=== PATIENT | female | born 1985 | race Caucasian/White ===

== ENCOUNTER 2018-11-22 12:28 | Outpatient (REF) | payer MEDICAID, SELFPAY ==
[2018-11-22 13:40] LABS: HGB 14.1 g/dL (12.0-15.5); Mean Corp. HGB Concentration 34.4 g/dL (32.0-36.0); Mean Corpuscular Hemoglobin 28.3 pg (27.0-33.0); Mean Corpuscular Volume 82.2 fL (80-95); Mean Platelet Volume 11.5 fL (8.0-11.0); Platelet Count 277 x1000/uL (130-400); RBC 4.99 m/cumm (4.00-5.20); RBC Distribution Width 12.1 % (11.7-14.6); White Blood Cell Count 4.97 k/cumm (4.4-10.8)
[2018-11-22 14:01] LABS: ALT 14 U/L (14-59); AST 12 U/L (15-37); Albumin 4.1 g/dL (3.4-5.0); Alkaline Phosphatase 65 U/L (46-116); Anion Gap 11.8 mmol/L (3-11); BUN 8 mg/dL (7-18); Bilirubin, Total 0.7 mg/dL (0.2-1.0); CO2 26.2 mmol/L (21.0-32.0); CREATININE 0.84 mg/dL (0.55-1.02); Chloride 103 mmol/L (98-107); Glucose 91 mg/dL (70-100); Potassium 3.7 mmol/L (3.5-5.1); Sodium 141 mmol/L (136-145); TSH (W/Ref FT4) 0.82 uIU/mL (0.36-3.74); Total Protein 7.5 g/dL (6.4-8.2)
== END 2018-11-22 12:48 ==
LOC: NCHCN 12:28
PROVIDERS: PCP Family Medicine; Visit Provider Family Medicine
DX: F41.9 Anxiety disorder, unspecified (principal); F32.9 Major depressive disorder, single episode, unspecified
CPT/HCPCS: 80053; 82306; 85027; 84443

== ENCOUNTER 2019-03-26 13:28 | Outpatient (REF) | payer MEDICAID, SELFPAY ==
[2019-03-26 19:18] LABS: Bilirubin Negative (Negative); Blood Large (Negative); Clarity Cloudy (Clear); Glucose Negative (Negative); Ketones Negative (Negative); Leukocyte Esterase Moderate (Negative); Nitrite Negative (Negative); Specific Gravity >= 1.030 (1.005-1.025); Urobilinogen 0.2 EU/dL (Up TO 0.2)
[2019-03-26 19:27] LABS: Bacteria Moderate HPF (Negative); C & S Indicated? C&S Done As Ordered; Crystals Negative HPF (Negative); Epithelial Cells Many HPF (Negative); Mucus Negative (Negative); RBC >50 HPF (0-2); WBC >50 HPF (0-5)
[2019-03-28 10:39] LABS: Hepatitis B Surface Ag Negative (Negative); Hepatitis C Ab w Rflx HCV PCR Negative (Negative)
[2019-03-28 10:46] LABS: HIV-1/2 Ag & Ab Screen Negative (Negative)
[2019-03-28 13:09] LABS: Chlamydia Result Negative (Negative); GC Result Negative (Negative)
[2019-03-28 13:26] LABS: Syphilis Serology (RPR) Negative (Negative)
== END 2019-03-26 13:48 ==
LOC: NCHCN 13:28
PROVIDERS: PCP Family Medicine; Visit Provider Nurse Practitioner Family
DX: R39.89 Other symptoms and signs involving the genitourinary system (principal); Z11.3 Encounter for screening for infections with a predominantly sexual mode of transmission; Z11.4 Encounter for screening for human immunodeficiency virus [HIV]; Z11.59 Encounter for screening for other viral diseases
CPT/HCPCS: 86803; 87340; 87389; 87491; 87591; 81003; 81015; 86592; 87086; 87480; 87510; 87660

== ENCOUNTER 2020-02-24 21:24 | Outpatient (REF) | payer MEDICAID, SELFPAY ==
[2020-02-24 14:01] LABS: TSH (W/Ref FT4) 1.21 uIU/mL (0.36-3.74)
== END 2020-02-24 21:44 ==
LOC: NCHCN 21:24
PROVIDERS: PCP Family Medicine; Visit Provider Family Medicine
DX: R61 Generalized hyperhidrosis (principal)
CPT/HCPCS: 84443

== ENCOUNTER 2020-05-20 16:50 | Outpatient (REF) | payer MEDICAID, SELFPAY ==
[2020-05-20 19:47] LABS: HCT 40.9 % (36.0-46.0); HGB 13.7 g/dL (11.2-15.7); MCH 27.5 pg (27.0-33.0); MCHC 33.5 % (32.0-36.0); MPV 11.4 fL (8.0-11.0); Platelet Count 248 10^3/uL (130-400); RBC 4.99 10^6/uL (3.93-5.22); RDW 11.5 % (11.7-14.6); RDW-SD 34.3 fL; WBC 7.61 10^3/uL (4.4-10.8)
[2020-05-20 19:59] LABS: ALT 13 U/L (14-59); AST 7 U/L (15-37); Albumin 3.4 g/dL (3.4-5.0); Alkaline Phosphatase 78 U/L (46-116); Amylase 49 U/L (25-115); Anion Gap 7.1 mmol/L (3-11); BUN 10 mg/dL (7-18); Bilirubin, Total 0.3 mg/dL (0.2-1.0); CO2 26.9 mmol/L (21.0-32.0); CREATININE 0.8 mg/dL (0.55-1.02); Calcium 8.9 mg/dL (8.5-10.1); Chloride 103 mmol/L (98-107); Glucose 86 mg/dL (74-106); Lipase 84 U/L (73-393); Potassium 4.3 mmol/L (3.5-5.1); Sodium 137 mmol/L (136-145)
[2020-05-20 20:38] LABS: D-Dimer 244 ng/mlFEU (<500)
== END 2020-05-20 16:51 | disposition home or self-care (01) ==
LOC: NCHCN 16:50
PROVIDERS: PCP Family Medicine; Visit Provider Family Medicine
DX: R11.0 Nausea (principal); R10.11 Right upper quadrant pain
CPT/HCPCS: 80053; 83690; 85027; 82150; 85379

== ENCOUNTER 2020-05-28 01:34 | Outpatient (CLI) | payer MEDICAID, SELFPAY ==
--- NOTE | 2020-05-28 | DI.US_ITS ---
EXAM: US ABDOMEN CLINICAL HISTORY: RUQ ABD PAIN, R10.11 TECHNIQUE: Ultrasound of complete upper abdomen performed using standard protocol. COMPARISON: US OB US 1ST TRIMESTER TRANSABD*P from 12/07/2010 US PELVIS TRANSVAG from 10/13/2016 FINDINGS: There is no ascites evident. LIVER: There are no hepatic lesions evident nor obvious dilatation of intrahepatic ducts. GALLBLADDER/BILIARY: There are no gallstones. No gallbladder wall edema nor pericholecystic fluid. The common hepatic duct isnot dilated, measuring 3-4mm at the level of sergio hepatis. PANCREAS: There is no evidence of pancreatic mass nor dilatation of the pancreatic duct. SPLEEN: There is mild splenomegaly. Spleen measures 14 cm in length. There are no distinct intraspl enic lesions. No perisplenic fluid. KIDNEYS:Kidneys exhibit normal size with no evidence of solid mass, calculus, nor hydronephrosis. No cortical cysts evident. ABDOMINAL AORTA: There is no evidence of abdominal aortic aneurysm. IVC: Normal diameter where visualized. IMPRESSION: 1. No evidence of cholelithiasis nor dilatation of the biliary tree. 2. Mild splenomegaly. 3. There is no ascites. DATA REPOSITORY:
== END 2020-05-28 01:54 ==
PROVIDERS: PCP Family Medicine; Visit Provider Family Medicine
DX: R10.11 Right upper quadrant pain (principal); R16.1 Splenomegaly, not elsewhere classified
CPT/HCPCS: 76700

== ENCOUNTER 2020-06-18 03:14 | Outpatient (CLI) | payer MEDICAID, SELFPAY ==
[2020-06-18 11:04] LABS: Kit/Specimen SENT
[2020-06-18 11:16] LABS: Abs Immature Grans 0.02 10^3/uL (0.0-0.06); Absolute Basophil Count 0.02 10^3/uL (0.0-0.2); Absolute Eosinophil Count 0.06 10^3/uL (0.0-0.7); Absolute Lymphocyte Count 0.84 10^3/uL (1.2-3.4); Absolute Monocyte Count 0.35 10^3/uL (0.1-0.8); Absolute Neutrophil Count 4.85 10^3/uL (1.2-6.7); Basophils % 0.3; HCT 40.2 % (36.0-46.0); HGB 13.6 g/dL (11.2-15.7); Immature Grans % 0.3; Lymphocytes % 13.7; MCHC 33.8 % (32.0-36.0); MCV 82.9 fL (80-95); MPV 10.1 fL (8.0-11.0); Monocytes % 5.7; Nucleated RBC 0 %; Platelet Count 230 10^3/uL (130-400); RBC 4.85 10^6/uL (3.93-5.22); RDW 11.6 % (11.7-14.6); RDW-SD 34.6 fL; WBC 6.14 10^3/uL (4.4-10.8)
[2020-06-18 11:22] LABS: Glucose,1 Hr (Glucola) 91 mg/dL (80-140)
[2020-06-19 09:20] LABS: Hepatitis B Surface Ag Negative (Negative)
[2020-06-19 09:59] LABS: Hepatitis C Ab w Rflx HCV PCR Negative (Negative)
[2020-06-19 10:22] LABS: HIV-1/2 Ag & Ab Screen Negative (Negative)
[2020-06-19 10:33] LABS: Varicella IgG Antibody Positive (See Note)
[2020-06-19 10:37] LABS: Rubella IgG Ab (UVM) Positive (See Note)
[2020-06-20 10:09] LABS: Syphilis Total Ab w/Reflex Nonreactive (Nonreactive)
[2020-06-26 17:21] LABS: Result Summary NEGATIVE; Specimen WB Whole Blood
== END 2020-06-18 03:15 | disposition home or self-care (01) ==
LOC: LBO 03:14
PROVIDERS: PCP Family Medicine; Visit Provider Advanced Practice Midwife
DX: Z34.91 Encounter for supervision of normal pregnancy, unspecified, first trimester (principal); Z11.4 Encounter for screening for human immunodeficiency virus [HIV]; Z11.59 Encounter for screening for other viral diseases; Z01.84 Encounter for antibody response examination
CPT/HCPCS: 36415; 82950; 86787; 86803; 86850; 86900; 86901; 87340; 87389; 81220; 84443; 85025; 86762; 86780

== ENCOUNTER 2020-06-18 11:04 | Outpatient (REF) | payer MEDICAID, SELFPAY ==
--- NOTE | 2020-06-18 10:00 | PAPFT_PTH ---
PATIENT: Karina Aguilar LOC: [facility] U#:[id number] AGE/SX: 34/F ROOM: RE06/18/[address]: Ara Damon CNM : 1985 BED: DIS: 06/18/2020 SPEC #: [id number] RECD: 06/18/20 12:54 STATUS: DARVIN REQ #: [id number] JUVENTINO: 06/18/20 10:[address]: Ara Damon DEPT: [facility] Cytology RECD BY: Vangie Reaves ENTERED: 06/18/20 12:55 SP TYPE: PAPFT OTHR DR: Ale Bourgeois Tissues: 1 - CX/ENDOCX FOR PAP SMEARS Procedures: PAP THIN PREP/UVM Screening HPV DNA PROBE Comments: [id number]
[2020-06-18 11:59] LABS: *AMPHETAMINES SCREEN URINE Negative (Negative); *BARBITURATES SCREEN URINE Negative (Negative); *BENZODIAZEPINES SCREEN URINE Negative (Negative); Cannabinoids THC Positive (Negative); Cocaine Screen,Urine Negative (Negative); METHADONE URINE SCREEN Negative (Negative); OPIATES URINE SCREEN Negative (Negative)
[2020-06-18 12:00] LABS: Tricyclic Antidepressants Negative (Negative)
[2020-06-19 14:39] LABS: Chlamydia Result Negative (Negative); GC Result Negative (Negative)
[2020-06-24 11:25] LABS: Buprenorphine Negative ng/mL (Cutoff: 5.0); Norbuprenorphine Negative ng/mL (Cutoff: 2.5)
== END 2020-06-18 11:05 | disposition home or self-care (01) ==
LOC: LBN 11:04
PROVIDERS: PCP Family Medicine; Visit Provider Advanced Practice Midwife
DX: Z34.91 Encounter for supervision of normal pregnancy, unspecified, first trimester (principal); Z11.3 Encounter for screening for infections with a predominantly sexual mode of transmission; Z12.4 Encounter for screening for malignant neoplasm of cervix; Z11.51 Encounter for screening for human papillomavirus (HPV)
CPT/HCPCS: 80307; 87491; 87591; 88142; 87086; 87624

== ENCOUNTER 2020-08-11 02:25 | Outpatient (CLI) | payer MEDICAID, SELFPAY ==
--- NOTE | 2020-08-11 07:15 | DI.US_ITS ---
Exam(s) US OB 2-3 TRIMESTER EXAM: US OB 2-3 TRIMESTER CLINICAL HISTORY: anatomy SURVEY,ADVANCED MATERNAL AGE,o09.529,Z34.90. TECHNIQUE: Transabdominal obstetrical ultrasound performed. COMPARISON: No previous for comparison. FINDINGS: Transabdominal obstetrical ultrasound performed. FINDINGS: Number of fetuses: One. position: Varied throughout the examination. heart rate: 158 bpm. Placental location: Posterior. No evidence of previa. Amniotic fluid index: Amount of fluid is within normal limits. ANATOMICAL SURVEY: Within normal limits. BIOMETRIC DATA: BPD: 4.5cm consistent with 19 weeks 4 days. HC: 17.3cm consistent with 19 weeks 6 days. AC: 14.4cm consistent with 19 weeks 5 days. FL: 3.1cm consistent with 19 weeks 5 days. Cisterna Magna: 2.8 mm Cerebellum: 1.95 cm EFW: 308 grms 62% Composite Age: 19 weeks 5 days EDC by US: 12/31/2020 Heart Rate: 158BPM IMPRESSION: 1. Single live intrauterine gestation as above. 2. Normal anatomic survey. DATA REPOSITORY:
== END 2020-08-11 02:45 ==
PROVIDERS: PCP Family Medicine; Visit Provider Obstetrics & Gynecology
DX: O09.522 Supervision of elderly multigravida, second trimester (principal); Z3A.19 19 weeks gestation of pregnancy
CPT/HCPCS: 76805

== ENCOUNTER 2020-08-18 02:46 | Outpatient (CLI) | payer MEDICAID, SELFPAY ==
[2020-08-19 15:47] LABS: AFP 71.2 ng/mL; GA used in risk estimate Scan estimate; IVF Pregnancy No; Initial or repeat testing Initial testing; Insulin dependent diabetes No; Maternal Weight 219 lbs; Number of Fetuses 1; Physician Phone Number 802-748-7300; Prev Pregnancy w/NTD No; RECOMMENDED FOLLOW UP None.; Results Summary Normal risk
== END 2020-08-18 02:47 | disposition home or self-care (01) ==
LOC: LBO 02:46
PROVIDERS: PCP Family Medicine; Visit Provider Obstetrics & Gynecology Gynecology
DX: O09.522 Supervision of elderly multigravida, second trimester (principal); Z3A.20 20 weeks gestation of pregnancy
CPT/HCPCS: 82105

== ENCOUNTER 2020-10-12 03:39 | Outpatient (CLI) | payer MEDICAID, SELFPAY ==
[2020-10-12 09:49] LABS: HCT 33.5 % (36.0-46.0); HGB 11.1 g/dL (11.2-15.7); MCH 27.2 pg (27.0-33.0); MCHC 33.1 % (32.0-36.0); MCV 82.1 fL (80-95); MPV 10.1 fL (8.0-11.0); Platelet Count 244 10^3/uL (130-400); RBC 4.08 10^6/uL (3.93-5.22); RDW 12.1 % (11.7-14.6); RDW-SD 36.3 fL; WBC 7.75 10^3/uL (4.4-10.8)
[2020-10-12 09:57] LABS: Glucose,1 Hr (Glucola) 116 mg/dL (80-140)
== END 2020-10-12 03:40 | disposition home or self-care (01) ==
PROVIDERS: PCP Family Medicine; Visit Provider Obstetrics & Gynecology Gynecology
DX: O09.523 Supervision of elderly multigravida, third trimester (principal); O26.893 Other specified pregnancy related conditions, third trimester; Z67.91 Unspecified blood type, Rh negative; Z3A.28 28 weeks gestation of pregnancy
CPT/HCPCS: 36415; 82950; 85027; 86850; 90384

== ENCOUNTER 2020-10-15 02:27 | Inpatient (IN) | payer MEDICAID, SELFPAY ==
[2020-10-15] VITALS (8 sets, daily range): BP systolic 104–149; BP diastolic 64–88; PULSE 71–85; RESP 16–20; TEMP 36.5–36.8; O2SAT 98–100; BMI 33.6
--- NOTE | 2020-10-15 03:10 | W.PM.OBHPL1 ---
Date of service: 10/15/20 Time of Service: 03:10 Assessment and Plan Assessment and plan (1) Premature rupture of membranes: Status: Acute Assessment and plan: Patient arrived on the percent to completely dilated. She is not subjectively experiencing contractions. Eliseo breech on presentation. I advised the patient that a delivery is best plan of care because of the 's premature status. Informed consent was obtained I explained the risks of delivery of premature infant. The OR team has been called we will proceed to the OR. Ancef 2 g of been given IV. GBS obtained currently pending. Qualifiers: PROM onset of labor timing: onset of labor within 24 hours of rupture PROM gestational age: -second trimester Qualified Code(s): O42.012 - premature rupture of membranes, onset of labor within 24 hours of rupture, second trimester (2) Breech presentation: Status: Acute Qualifiers: Fetus number: single or unspecified fetus Qualified Code(s): O32.1XX0 - Maternal care for breech presentation, not applicable or unspecified OB-HPI Labor/Delivery History of Present Illness Reason for Visit: R/O PPROM Chief Complaint: Suspected Rupture of Membranes , Associated Signs and Symptoms of Suspected ROM: Confirmed by digital exam nitrazine test. LADAN Calculator Estimated Delivery Date Method Current WG Current Estimate 01/02/21 LMP (Certain) 28w 5d Other Estimates 01/01/21 Ultrasound #1 28w 6d History of Present Expected Delivery Route/Plan - elects FOB/boyfriend - Alexander Walker (their first child together, he has 2 sons) Would like regional anesthesia for labor/ BG Specific Issues/Plan 1. Hx depression/anxiety, was on Prozac, stopped once became , PHQ9 score=4 2. FOB's sons have lead poisoning/autism and are special needs (teenagers) 3. AMA, declines [facility] referral but desires [place] and CF screening. CF neg,[place]=low prob x3, female 4. BMI 30.1 at initial OB, early glucola 91. 8. Repeat Glucola 5.7. discussed vasectomy. Partner agrees to vasectomy. Dr. Jerry's info given 6. Increased risk for gest HTN/pre-e d/t AMA & BMI, low dose ASA starting @ 12 wks 08/17/20. Stopped ASA. GI upset. 09/14/20. Pepsid liquid 20mg BID not effective. 10/12/20 Nexium granules Rx to pt. 7. Smoker, advised to continue to decrease use, declines cessation assistance 8. +THC on UDS, discuss with Karina 9. Rh neg, 28 wk RhoGam ____ Review of Systems All systems reviewed & are unremarkable except as noted in HPI and below Genitourinary Comments: Rupture of amniotic sac with clear fluid approximately 1:00 this morning. Patient denies any regular contractions she reports feeling cramping [facility] Medical History (Updated 10/15/20 @ 03:16 by Lacy Crooks MD) Acquired skin tag AMA (advanced maternal age) multigravida 35+ Anxiety BMI 30.0-30.9,adult Chronic low back pain Depression Difficulty swallowing pills Hip pain Poor dentition Preventative health care Rh negative state in antepartum period Tobacco abuse Social History (Updated 03/20/19 @ 13:41 by Denise De La Garza RN) Smoking/Tobacco Use Status: Former Tobacco Use Quit Date: 03/05/19 Pack-years: 15 Smoking risk assessment performed?: Yes Drug use: Occasionally Do you feel safe in your relationship?: Yes History History 4 Para 2 Hx # Term Pregnancies 2 Multiple births 0 Hx # Pregnancies 0 Ectopic pregnancies 0 AB induced 0 Hx Number of Living Children 2 AB spontaneous 1 Past Pregnancies Del. Date GA/Weeks # Outcome Route Wgt Sex Labor Lgth Anesthesia Location Prov Complic 07/27/04 41 No Successful vaginal 7 lb 3 oz Male long [facility] - Dr. Suggs 08/04/11 41 No Successful vaginal 8 lb 6 oz Male 7 hrs regional [facility] - Dr. Goss Delivery Date: 07/27/04 IOL for postdates, vaginal miso x1, nml Yaneth Gerardo Delivery Date: 08/04/11 swept membranes, labor started 2 days later, nml Yaneth Cortés Meds Allergies and Home Medications Allergies Allergy/AdvReac Type Severity Reaction Status Date / Time codeine AdvReac Mild Hyper Unverified 10/12/20 08:42 hydrocodone bitartrate AdvReac Mild HYPER Unverified 10/12/20 08:42 [From Vicodin] Home Medications Medication Instructions Recorded Confirmed Type albuterol sulfate [Proair Hfa] 8.5 g INHALATION PRN PRN 09/01/16 10/15/20 History XQU21-LU 400 mcg-om3 35 mg-dha 25 4 tab PO DAILY AM #90 tab 06/18/20 10/15/20 Rx mg-epa 5 mg-fish oil chewable tablet aspirin 81 mg tablet,delayed 81 mg PO DAILY #90 tab 06/18/20 10/15/20 Rx release esomeprazole magnesium 40 mg 40 mg PO DAILY #30 ea 10/12/20 10/15/20 Rx granules delayed release for susp Exam Physical Exam Vital signs: Pulse BP 81 124/65 10/15/20 02:41 10/15/20 02:41 Constitutional Constitutional: no acute distress Detailed Labor and Delivery Exam Allen Score: Cervical Points Exam 0 1 2 3 Dilation Closed 1-2cm 3-4 cm 5-6cm Effacement 0-30% 40-50% 60-70% 80% Consistency Firm Medium Soft Station -3 -2 -1,0 +1,+2 Position Posterior Mid Anterior Amniotic Membrane Status: Ruptured Rupture Method: Spontaneous Amniotic Fluid: Clear Pooling: Positive Nitrazine: Positive Monitor Mode: External Contraction Intensity: Mild Comments: No contractions evident on external tocometer Fetus A Monitor Accelerations: 10 X 10 Monitor Decelerations: None Variability: Moderate (6-25 BPM) Presentation: Breech Categories: Category I Neck Exam Neck Exam: Normal Respiratory Exam Respiratory Exam: Normal Cardiovascular Exam Cardiovascular Exam: Normal (Heart regular rate and rhythm) Abdominal Exam Abdominal Exam: Normal (Gravid nontender) Results Results Group Beta Strep: Done-Result Unknown Blood Type: O- Rubella Status: Immune Varicella Immunity: Immune Risk Assessment Risk for Shoulder Dystocia Historical/Initial OB: NEGATIVE FOR: Pelvic Abnormality, Pre- BMI>30, Previous Shoulder Dystocia or Previous Macrosomia Risk for Pre-Eclampsia Date Initiated/Initials: to start @ 12 wks. JK Yes, if one or more: NEGATIVE FOR: Hx Pre-E/Gest HTN, Chronic HTN, Multiple Gestation, Pre-gestational DM, Renal Disease, Systemic Lupus or APA Syndrome Yes, if 2 or more: POSITIVE FOR: Age>= 35 yrs and BMI>30; NEGATIVE FOR: Nulliparity, >10yr btwn pregnancies, ethinicty, Mother/Sister w/ Pre-E or Previous IUGR Risk for Post- Hemorrhage Initial: NEGATIVE FOR: Multiple Gestation, Previous PPH, Known Clotting Deficiency, Grand Multiparity or Anticoagulation Risks Reviewed Risks Reviewed Upon Admission: Yes (Bedside ultrasound confirmed breech presentation and decreased TATA)
[2020-10-15] MEDS: Lactated Ringers 1,000 ML 200 ML IV (03:21)
[2020-10-15] MEDS: ceFAZolin 2 GM/50 ML BAG IVPB (03:21)
[2020-10-15 03:33] LABS: HCT 35.3 % (36.0-46.0); HGB 11.6 g/dL (11.2-15.7); MCH 27.8 pg (27.0-33.0); MCHC 32.9 % (32.0-36.0); MCV 84.7 fL (80-95); MPV 10.4 fL (8.0-11.0); Platelet Count 238 10^3/uL (130-400); RBC 4.17 10^6/uL (3.93-5.22); RDW 12.2 % (11.7-14.6); RDW-SD 36.9 fL; WBC 8.06 10^3/uL (4.4-10.8)
--- NOTE | 2020-10-15 03:58 | PLAC_PTH ---
PATIENT: Karina Aguilar LOC: [facility] U#:[id number] AGE/SX: 34/F ROOM: OBS.302 RE10/15/[address]: Lacy Crooks : 1985 BED: A DIS: 10/15/2020 SPEC #: [id number] RECD: 10/15/20 12:58 STATUS: DARVIN REQ #: [id number] JUVENTINO: 10/15/20 03:[address]: Lacy Crooks DEPT: Surgical Specimen RECD BY: Vangie Reaves ENTERED: 10/15/20 13:00 SP TYPE: PLAC OTHR DR: Ale Bourgeois Tissues: 1 - PLACENTA (3RD TRIMESTER) Procedures: GROSS AND MICRO LEVEL 5 Comments: [id number]
[2020-10-15] MEDS: Bupivacaine 0.25% Pres-Free 30 ML VIAL (04:20)
--- NOTE | 2020-10-15 04:20 | ANES.PREOP_ITS ---
General Info Date of Service Date Performed: 10/15/20 Height: 5 ft 8.9 in Weight: 102.965 kg Body Mass Index (BMI): 33.6 Surgical Procedure: Operation Date: 10/15/20 03:50 Proposed Procedures Side Surgeon p Section Lacy Crooks MD Actual Procedures Side Surgeon p Section Not Applicable Lacy Crooks MD Meds Allergies and Home Medications Allergies Allergy/AdvReac Type Severity Reaction Status Date / Time codeine AdvReac Mild Hyper Unverified 10/12/20 08:42 hydrocodone bitartrate AdvReac Mild HYPER Unverified 10/12/20 08:42 [From Vicodin] Home Medication Medication Instructions Recorded albuterol sulfate [Proair Hfa] 8.5 g INHALATION PRN PRN 09/01/16 [id number] 400 mcg-om3 35 mg-dha 25 4 tab PO DAILY AM #90 tab 06/18/20 mg-epa 5 mg-fish oil chewable tablet aspirin 81 mg tablet,delayed 81 mg PO DAILY #90 tab 06/18/20 release esomeprazole magnesium 40 mg 40 mg PO DAILY #30 ea 10/12/20 granules delayed release for susp Current Visit Medications: Current Medications Generic Name Dose Route Start Last Admin Trade Name Freq PRN Reason Stop Dose Admin Citric Acid/Sodium Citrate 30 ml 10/15/20 03:00 Sodium Citrate 30 Ml Cup PO PREOP HARSHAL Sodium Chloride 500 mls @ 0 mls/hr 10/15/20 02:27 Saline 500ml Bag IV PRN PRN As Directed Ringer's Solution 1,000 mls @ 200 mls/hr 10/15/20 03:00 IV INFUSION HARSHAL Cefazolin Sodium/Dextrose 2 gm in 50 mls @ 100 mls/hr 10/15/20 03:00 10/15/20 03:41 Ancef Duplex IVPB Infused PREOP HARSHAL Infusion Azithromycin 500 mg/ Sodium 250 mls @ 250 mls/hr 10/15/20 03:00 Chloride IVPB PREOP HARSHAL Sodium Chloride 500 mls @ 0 mls/hr 10/15/20 02:57 Saline 500ml Bag IV PRN PRN As Directed IV Miscellaneous Supplies 1 each 10/15/20 02:30 Iv Access IV DIRECTED HARSHAL IV Miscellaneous Supplies 1 each 10/15/20 03:00 Iv Access IV DIRECTED HARSHAL Sodium Chloride 0 ml 10/15/20 02:27 Normal Saline Flush 10 Ml Syr IVP PRN PRN Sodium Chloride 0 ml 10/15/20 02:57 Normal Saline Flush 10 Ml Syr IVP PRN PRN PFSH Active Problems Active Problems: Problem Status Onset Code Breech presentation O32.1XX0 Premature rupture of membranes O42.90 Rh negative state in antepartum period O26.899, Z67.91 Difficulty swallowing pills R19.8 GERD (gastroesophageal reflux disease) K21.9 AMA (advanced maternal age) multigravida 35+ O09.529 BMI 30.0-30.9,adult Z68.30 Marijuana use F12.90 Z34.90 Tobacco abuse Z72.0 Poor dentition K08.9 Anxiety F41.9 Depression F32.9 Acquired skin tag L91.8 Medical History Medical History (Updated 10/15/20 @ 03:16 by Lacy Crooks MD) Acquired skin tag AMA (advanced maternal age) multigravida 35+ Anxiety BMI 30.0-30.9,adult Chronic low back pain Depression Difficulty swallowing pills Hip pain Poor dentition Preventative health care Rh negative state in antepartum period Tobacco abuse Tobacco Smoking/Tobacco Use Status: Former Tobacco Use Substance Use Substance use: Occasionally Prental History History 4 Para 2 Hx # Term Pregnancies 2 Multiple births 0 Hx # Pregnancies 0 Ectopic pregnancies 0 AB induced 0 Hx Number of Living Children 2 AB spontaneous 1 Past Pregnancies Del. Date GA/Weeks # Outcome Route Wgt Sex Labor Lgth Anesthes ia Location [facility] 07/27/04 41 No Successful vaginal 3260.195 g Male long [facility] Suggs 08/04/11 41 No Successful vaginal 3798.836 g Male 7 hrs regional [facility] Angie Goss Delivery Date: 07/27/04 IOL for postdates, vaginal miso x1, nml Yaneth Gerardo Delivery Date: 08/04/11 swept membranes, labor started 2 days later, nml Yaneth Cortés Vital Signs and Lab Results Vital Signs Most Recent Vital Signs in EMR: Most Recent Vital Signs Temp Pulse Resp BP 36.8 C 81 20 124/65 10/15/20 02:44 10/15/20 02:41 10/15/20 02:44 10/15/20 02:41 Lab Results Result Diagrams: 10/15/20 03:05 Blood Type / Crossmatch: Patient ABO/Rh O Negative 10/15/20 03:05 10/15/20 Antibody Screen POSITIVE 10/15/20 03:05 10/15/20 Crossmatch See Detail 10/15/20 03:05 10/15/20 Complete Blood Count: White Blood Count 8.06 10^3/uL (4.4-10.8) 10/15/20 03:05 10/15/20 Red Blood Count 4.17 10^6/uL (3.93-5.22) 10/15/20 03:05 10/15/20 Hemoglobin 11.6 g/dL (11.2-15.7) 10/15/20 03:05 10/15/20 Hematocrit 35.3 % (36.0-46.0) L 10/15/20 03:05 10/15/20 Platelet Count 238 10^3/uL (130-400) 10/15/20 03:05 10/15/20 Complete Metabolic Panel: No Data to Display Liver Function Panel: No Data to Display Coagulation Panel: No Data to Display Cardiac Panel: No Data to Display Arterial Blood Gas: No Data to Display Venous Blood Gas: No Data to Display Pancreas Panel: No Data to Display Thyroid Panel: No Data to Display Infectious Disease: No Data to Display Blood Cultures: No Data to Display Toxicology Panel: No Data to Display Panel: No Data to Display Anesthesia Assessment and Plan Anesthesia History Personal History: No History of Anesthesia Complications Family History: No Family History of Anesthesia Complications Exercise Tolerance Exercise Tolerance: Metabolic Equivalents>4 Pertinent Negatives Pertinent Negatives: No Major Cardiovascular Symptoms or Complaints and No Major Pulmonary Symptoms or Complaints Cardiac & Pulmonary Exam Cardiac Exam: Normal S1/S2 Heart Sounds Pulmonary Exam: Clear Bilateral Breath Sounds Airway Exam Known Difficult Airway: No Mallampati Class: 2 Mouth Opening: Normal (> 3cm) Thyromental Distance: Greater than 3 cm Neck Range of Motion: Full ROM Neck Circumference: Normal Teeth Condition: Normal Dentition and Other (Missing upper center teeth) ASA Classification ASA Score: ASA 2 Emergency Case?: Yes NPO Status NPO Status: Full Stomach Status Status: Confirmed Anesthesia Plan Resuscitation Status: Full Code Anesthesia Technique: Spinal Anesthesia Airway Planned: Natural Airway Monitors Used: Standard Monitors Preoperative Comments:: Quick preop completed before procedure start. Formalized now.
--- NOTE | 2020-10-15 05:07 | PDOC.OPNB_ITS ---
Date of service: 10/15/20 Time of Service: 05:07 Operative Note Operative Note Delivery Method: Unscheduled Category: STAT and Primary DATE OF PROCEDURE: 10/15/20 PRE-OP DIAGNOSES: rupture of membranes at 28w5d EGA. Breech presentation POST-OP DIAGNOSES: same PROCEDURE: Upper uterine segment transverse delivery SURGEON: Lacy Crooks Assisting Surgeon: Andree Jara Anesthesia: spinal Estimated blood loss (mL): 700 Pathology: other (placenta to pathology. ) Complications: None Patient was transported to: floor Patient's condition: stable Indications: 34yo female with LADAN 01/02/21 by LMP confirmed by 1st trimester u/s reported gush of clear fluid ~ 0100 10/15/20. SVE on presentation to Center gross rupture of membranes confirmed along with ancelmo breech presentation confirmed on bedside u/s. Category 1 FHR tracing. Pt counseled and accepted need to perform primary Findings: Viable female infant in breech presentation, sacrum anterior and head to maternal R. Nl appearing placenta, 3 vessel cord. Arterial umbilical cord gas pH 7.29, CO2 57, BE 0. Nl appearing uterus and adnexa. Procedure Description: Patient was taken to the operating room she is placed in the sitting position and spinal anesthesia was administered without difficulty. She was then placed in the dorsal supine position with a leftward tilt. SCDs and a Pérez catheter to gravity drainage were in place. A vaginal prep was deferred and the patient's abdomen was prepped and draped in the usual sterile fashion. After a adequate level of anesthesia was achieved a Pfannenstiel skin incision was made approximately 2 cm superior to the pubic symphysis using a scalpel and the underlying subcutaneous tissue dissected using Bovie electrocautery to the level of the rectus fascia. The rectus fascia was then nicked in the midline and the fascial incision extended laterally using curved Cortes scissors. 2 Janelle clamps were applied to the inferior rectus fascia and the rectus fascia was dissected off of the underlying rectus muscles using Bovie electrocautery and blunt technique. A similar technique was carried out on the superior rectus fascia. Rectus muscles were then in the midline and the peritoneum entered bluntly. The peritoneal incision was extended laterally using blunt technique. A bladder blade was then placed in the incision and the bladder retracted away from the operative field. The vesicle-uterine peritoneum over lower uterine segment was incised with curved Cortes scissors and the bladder flap created bluntly. Scalpel was used to incise what appeared to be the lower uterine segment in a transverse fashion. Upon entry into the uterus the uterine incision was extended bluntly and the amniotic sac was ruptured. A single sterile gloved hand was used to sweep the head in a counter clockwise fashion allowing the buttocks to be lifted out of the lower uterine segment and then grasped. With bilateral traction of the illiac crests the trunk was delivered followed by the head. The cord was doubly clamped and cut and the handed off to the waiting pediatric team. A segment of umbilical cord was cut and saved for umbilical cord gases and cord blood was collected. The placenta was extracted with a combination of fundal massage and gentle cord traction and sent to pathology. The uterus was exteriorized and cleared of all clots and debris. Inspection of the transverse uterine incision revealed it to be higher than the lower uterine segment. The location of the transverse incision was 1/[address] up the length of the uterus. The uterine incision was closed in layers. The initial closure was with a running lock suture of 0 Vicryl followed by a second imbricating suture of 0 Vicryl. This was then followed by a 3rd layer of closure with 0-Vicryl. Two sites along the incision required figure of eight closure with 2-0 Vicryl to achieve hemostasis. The uterus was returned to the abdomen, the incision inspected and noted to be hemostatic. Both adnexa were normal in appearance. The abdominal peritoneum was reapproximated with a running suture of 2-0 Vicryl. The rectus fascia was then reapproximated with a closure of 0 Vicryl extending from the lateral margins and overlapping in the midline. Subcutaneous tissue was irrigated with normal saline and reapproximated with interrupted sutures of 2-0 Vicryl. Skin was closed with a subcuticular closure of 4-0 Vicryl. The skin was then sealed with skin glue. Uterus was massaged for any remaining clots and debris's and the patient transf erred bed and transported to Center in stable condition. All sponge lap needle counts were correct x2
[2020-10-15 06:44] LABS: Source Nasal/Nares
[2020-10-15 07:34] LABS: COVID-19 PCR Negative (Negative)
--- NOTE | 2020-10-15 07:36 | W.PM.OBDISCH ---
DS: Diagnosis Discharge Diagnosis (1) Premature rupture of membranes: Status: Acute (2) Breech presentation: Status: Acute Discharge Plan Disposition Patient Disposition: [facility] Condition: Fair Discharge Details Reason For Visit: R/O PPROM Admit Date/Time: 10/15/20 02:27 Admit Provider: Lacy Crooks Attending Provider: Lacy Crooks Primary Care Provider: Ale Bourgeois [facility] Hospital Course: Patient was admitted early in the morning on 10/15/2020 with report of SROM at 0100 hours. The PROM with ancelmo breech presentation was confirmed on admission. She underwent a urgent delivery and delivered a viable female weighing 1265 g Apgars 6/7/7. The was stabilized and transferred to [facility] NICU. The placenta was sent for pathology analysis. The infant will be named Roxie. She requested transfer to [facility] to be in closer proximity to her . Transfer was accepted by Dr. Prabha Clark. She be discharged via ambulance with an IV and Pérez catheter in place. Home Meds and New Rx's Prescriptions: No Action aspirin [Aspirin Low Dose] 81 mg tablet,delayed release (DR/EC) 81 mg PO DAILY Qty: 90 RF: 0 Gummy 400 mcg-35 mg -25 mg-5 mg tablet,chewable 4 tab PO DAILY AM Qty: 90 RF: 6 esomeprazole magnesium [Nexium Packet] [address] for susp in packet 40 mg PO DAILY Qty: 30 RF: 5 albuterol sulfate [ProAir HFA] 200 PUFF HFA aerosol inhaler 8.5 g Inhalation PRN PRNRF: 0 Discharge Instructions Activity:: Activity as Tolerated Equipment/Supplies:: No Equipment Needed Diet:: As Tolerated Discharge Orders Discharge Orders: Discharge Order (Routine); Ordered 10/15/20 Ordered By: Lacy Crooks OB:DS Summary Summary Laceration Extension: N/A Contraception Discussed Contraception Discussed: No, Infant Gender-Baby A: Female weight: 2 lb 12.622 oz Status at Discharge Functional status at discharge: bed bound Overall status at discharge: patient is progressing back to baseline Mental Status: mental status grossly normal Speech and Movement: speech and movement normal Mood: congruent mood Affect: normal affect Exam Physical Exam Vital signs: Temp Pulse Resp BP Pulse Ox 98.1 F 73 18 104/64 100 10/15/20 05:15 10/15/20 06:35 10/15/20 06:35 10/15/20 06:35 10/15/20 06:35 Vital Signs Reviewed: Yes Constitutional Constitutional: no acute distress HEENT Exam HEENT Exam: Not Done Neck Exam Neck Exam: Normal Respiratory Exam Respiratory Exam: Normal Cardiovascular Exam Cardiovascular Exam: Normal Abdominal Exam Abdomen: Other (Nontender Pfannenstiel skin incision clean dry and intact skin glue in place) Fundal Exam Fundus: Below Umbilicus and Firm Rectal Exam Rectal Exam: Not Done Extremities Exam Extremity Exam: Normal Back/Spine/Pelvis Exam Back Exam: Normal (spinal site dry without bruising) Skin Exam Skin Exam: Normal Neurological Exam Neurological Exam: Normal Psychiatric Exam Psychiatric Exam: Normal [facility] Medical History (Updated 10/15/20 @ 07:37 by Lacy Crooks MD) Acquired skin tag AMA (advanced maternal age) multigravida 35+ Anxiety BMI 30.0-30.9,adult Chronic low back pain Depression Difficulty swallowing pills Hip pain Poor dentition Preventative health care Rh negative state in antepartum period Tobacco abuse Social History (Updated 03/20/19 @ 13:41 by Denise De La Garza RN) Smoking/Tobacco Use Status: Former Tobacco Use Quit Date: 03/05/19 Pack-years: 15 Smoking risk assessment performed?: Yes Alcohol Intake: never Drug use: Occasionally Substance use type: marijuana Do you feel safe in your relationship?: Yes History History 4 Para 2 Hx # Term Pregnancies 2 Multiple births 0 Hx # Pregnancies 0 Ectopic pregnancies 0 AB induced 0 Hx Number of Living Children 2 AB spontaneous 1 Past Pregnancies Del. Date GA/Weeks # Outcome Route Wgt Sex Labor Lgth Anesthesia Location Prov Complic 07/27/04 41 No Successful vaginal 7 lb 3 oz Male long [facility] - Dr. Suggs 08/04/11 41 No Successful vaginal 8 lb 6 oz Male 7 hrs regional [facility] - Dr. Goss Delivery Date: 07/27/04 IOL for postdates, vaginal miso x1, nml Yaneth Gerardo Delivery Date: 08/04/11 swept membranes, labor started 2 days later, nml Yaneth Cortés DS: Data Vitals/I&O Vitals and I&O: Vital Signs Temperature 98.1 F 10/15/20 05:15 Temperature Source Tympanic 10/15/20 05:15 Pulse 73 10/15/20 06:35 Pulse Rhythm Regular 10/15/20 02:44 Respiratory Rate 18 10/15/20 06:35 Blood Pressure 104/64 10/15/20 06:35 Pulse Oximetry 100 10/15/20 06:35 Oxygen Delivery Method Room Air 10/15/20 06:35 Oxygen Flow Rate 0 10/15/20 06:35 Pain Level 1 10/15/20 06:35 Intake & Output 10/14/20 10/14/20 10/15/20 11:59 23:59 11:59 Intake Total 1030 / 1030 Output Total 1100 / 1100 Balance -70 / -70 Weight 227 lb Intake: IV 750 / 750 Oral 280 / 280 Output: Urine 400 / 400 Estimated Blood Loss 700 / 700 Other: Urine Color Yellow Urine Appearance Clear Data Completed and Pending Labs on day of discharge: Labs from last 24 hours 10/15/20 10/15/20 10/15/20 03:05 03:05 03:05 WBC 8.06 RBC 4.17 Hgb 11.6 Hct 35.3 L MCV 84.7 MCH 27.8 MCHC 32.9 RDW 12.2 Plt Count 238 MPV 10.4 COVID-19 Source Nasal/Nares SARS-CoV-2 (PCR) Pending Patient ABO/Rh O Negative Antibody Screen POSITIVE Antibody Identification Anti-D Crossmatch See Detail 10/15/20 03:05 Vaginal/Rectal Group B Streptococcus Culture - Pending Preliminary micro results at discharge 10/15/20 03:05 Group B Streptococcus Culture - Pending Vaginal/Rectal
--- NOTE | 2020-10-15 14:34 | W.ANESPOSTOP ---
Postoperative Evaluation Date, Time and Location Date Performed: 10/15/20 Time Performed: 14:35 Patient Location: Other (Pt discharged to [facility] to be with 28week at [facility], pt stable prior to discharge.) Vital Signs Most Recent Imported Vital Signs: Most Recent Vital Signs Temp Pulse Resp BP Pulse Ox 36.5 C 81 16 108/70 99 10/15/20 07:40 10/15/20 07:40 10/15/20 07:40 10/15/20 07:40 10/15/20 07:40 Pain Score Most Recent Pain Score: Most Recent Pain Score Pain Level [Abdomen] 4 10/15/20 07:40 Pain Level 1 10/15/20 06:35 Assessment Mental Status: Other (Discharged) Airway and Respiratory Function: Other (Discharged) Cardiovascular Function: Other (Discharged) Hydration Status: Volume Overload (See Note) (Discharged) Nausea & Vomiting: No Nausea or Vomiting Pain: Other (Discharged) Peripheral Nerve Block: Other (Discharged to tertiary center prior to anesthesia postop assessment)
== END 2020-10-15 08:39 | disposition short-term general hospital (02) | DRG 787 ==
PROVIDERS: Admitting Provider Obstetrics & Gynecology Gynecology; PCP Family Medicine; Visit Provider Obstetrics & Gynecology Gynecology
PROC: 10D00Z1 Extraction of Products of Conception, Low, Open Approach (ICD-10-PCS; CPT 59514; principal; 2020-10-15 03:50)
DX: O42.012 Preterm premature rupture of membranes, onset of labor within 24 hours of rupture, second trimester (principal); O36.0930 Maternal care for other rhesus isoimmunization, third trimester, not applicable or unspecified; O99.324 Drug use complicating childbirth; Z37.0 Single live birth; Z3A.28 28 weeks gestation of pregnancy; O32.1XX0 Maternal care for breech presentation, not applicable or unspecified; O42.013 Preterm premature rupture of membranes, onset of labor within 24 hours of rupture, third trimester; O99.344 Other mental disorders complicating childbirth; F41.8 Other specified anxiety disorders; O99.334 Smoking (tobacco) complicating childbirth; F17.210 Nicotine dependence, cigarettes, uncomplicated; F12.90 Cannabis use, unspecified, uncomplicated
CPT/HCPCS: 59514; 85027; 86850; 86900; 86901; 86920; 87635; 86870; 87081; 88307; J0690; J1885; J2405; J2704; J3010

== ENCOUNTER 2021-09-08 16:41 | Outpatient (REF) | payer MEDICAID, SELFPAY | END 2021-09-08 16:42 | disposition home or self-care (01) | LOC: LBN 16:41 | PROVIDERS: PCP Family Medicine; Visit Provider Advanced Practice Midwife | DX: N89.8 Other specified noninflammatory disorders of vagina (principal); R32 Unspecified urinary incontinence | CPT/HCPCS: 87086; 87480; 87510; 87660 ==

== ENCOUNTER 2021-09-10 02:17 | Outpatient (CLI) | payer MEDICAID, SELFPAY ==
[2021-09-10 14:58] LABS: HCT 39.1 % (36.0-46.0); HGB 13.2 g/dL (11.2-15.7); MCH 26.5 pg (27.0-33.0); MCHC 33.8 % (32.0-36.0); MCV 79 fL (80-95); MPV 10.5 fL (8.0-11.0); Platelet Count 299 10^3/uL (130-400); RBC 4.98 10^6/uL (3.93-5.22); RDW 12.4 % (11.7-14.6); WBC 6.85 10^3/uL (4.4-10.8)
[2021-09-10 15:41] LABS: TSH (W/Ref FT4) 1.14 uIU/mL (0.36-3.74)
== END 2021-09-10 02:18 | disposition home or self-care (01) ==
LOC: LBO 02:17
PROVIDERS: PCP Family Medicine; Visit Provider Advanced Practice Midwife
DX: N92.0 Excessive and frequent menstruation with regular cycle (principal)
CPT/HCPCS: 36415; 85027; 84443

== ENCOUNTER → 2021-10-01 00:43 | Outpatient (CLI) | payer MEDICAID, SELFPAY ==
--- NOTE | 2021-10-01 08:00 | DI.US_ITS ---
Exam(s) US PELVIS TRANSVAGINAL EXAM: US PELVIS TRANSVAGINAL CLINICAL HISTORY: heavy frequent periods, MENORRHAGIA, N92.0. TECHNIQUE: Transabdominal and transvaginal pelvic ultrasound was performed using standard protocol. COMPARISON: US PELVIS TRANSVAG from 10/13/2016 US US OB 2-3 TRIMESTER from 08/11/2020 FINDINGS: UTERUS: Position: Anteverted. Size: 7 long by 4.2 AP by 6 transverse cm Endometrium: 0.6 cm. Normal for patient's menstrual status. Myometrium: Unremarkable. Cervix: Unremarkable. OVARIES: Right: 2.8 x 2.7 x 1.6 cm Cyst or mass: No suspicious cystic or solid masses. Left: 2.6 x 1.6 x 2.4 cm Cyst or mass: No suspicious cystic or solid masses. DOPPLER: Color: Symmetric and uniform flow to both ovaries. CUL-DE-SAC: Free fluid: None. Other: None. IMPRESSION: 1. Normal-appearing uterus with endometrial stripe within normal limits. 2. Unremarkable bilateral ovaries. DATA REPOSITORY:
== END ==
PROVIDERS: PCP Family Medicine; Visit Provider Advanced Practice Midwife
DX: N92.0 Excessive and frequent menstruation with regular cycle (principal)
CPT/HCPCS: 76830; 76856

== ENCOUNTER 2023-05-26 18:33 | Outpatient (REF) | payer MEDICAID, SELFPAY ==
[2023-05-26 18:32] LABS: HCT 43.1 % (36.0-46.0); HGB 13.8 g/dL (11.2-15.7); MCH 25.8 pg (27.0-33.0); MCV 81 fL (80-95); MPV 10.9 fL (8.0-11.0); Platelet Count 324 10^3/uL (130-400); RBC 5.35 10^6/uL (3.93-5.22); RDW 12.3 % (11.7-14.6); RDW-SD 35.8 fL; WBC 6.42 10^3/uL (4.4-10.8)
[2023-05-26 18:50] LABS: Hemoglobin A1C 5.4 % (<5.7)
[2023-05-26 18:53] LABS: ALT 15 U/L (14-59); AST 12 U/L (15-37); Albumin 3.9 g/dL (3.4-5.0); Alkaline Phosphatase 82 U/L (46-116); Anion Gap 10.2 mmol/L (3-11); BUN 10 mg/dL (7-18); Bilirubin, Total 0.4 mg/dL (0.2-1.0); CO2 24.8 mmol/L (21.0-32.0); Calcium 8.8 mg/dL (8.5-10.1); Chloride 107 mmol/L (98-107); Estimated GFR 73.49 (mL/min/1.73m2); Glucose 91 mg/dL (74-106); Potassium 3.9 mmol/L (3.5-5.1); Sodium 142 mmol/L (136-145); TSH (W/Ref FT4) 1.47 uIU/mL (0.36-3.74); Total Protein 7.5 g/dL (6.4-8.2)
== END 2023-05-26 18:34 | disposition home or self-care (01) ==
LOC: NCHCN 18:33
PROVIDERS: PCP Family Medicine; Visit Provider Family Medicine
DX: R63.5 Abnormal weight gain (principal); Z13.1 Encounter for screening for diabetes mellitus
CPT/HCPCS: 80053; 85027; 83036; 84443

== ENCOUNTER 2025-02-07 11:15 | Outpatient (REF) | payer MEDICAID, SELFPAY ==
[2025-02-07 19:19] LABS: HCT 43.0 % (36.0-46.0); HGB 14.1 g/dL (11.2-15.7); MCH 27.4 pg (27.0-33.0); MCHC 32.8 % (32.0-36.0); MCV 84 fL (80-95); MPV 11.3 fL (8.0-11.0); Platelet Count 285 10^3/uL (130-400); RBC 5.14 10^6/uL (3.93-5.22); RDW 12.0 % (11.7-14.6); RDW-SD 36.6 fL; WBC 4.85 10^3/uL (4.4-10.8)
[2025-02-07 19:34] LABS: Cholesterol 204 mg/dL (<200); HDL Cholesterol 56 mg/dL (>40)
[2025-02-07 19:35] LABS: TSH (W/Ref FT4) 1.13 uIU/mL (0.55-4.78)
[2025-02-07 19:36] LABS: Ferritin 21 ng/mL (7-271)
== END 2025-02-07 11:16 | disposition home or self-care (01) ==
LOC: NCHCN 11:15
PROVIDERS: PCP Family Medicine; Visit Provider Family Medicine
DX: N92.1 Excessive and frequent menstruation with irregular cycle (principal); R53.83 Other fatigue; Z13.220 Encounter for screening for lipoid disorders
CPT/HCPCS: 80061; 85027; 82728; 84443

== ENCOUNTER → 2025-02-17 00:15 | Outpatient (CLI) | payer MEDICAID, SELFPAY ==
--- NOTE | 2025-02-17 | DI.MAMMO_ITS ---
Exam(s) MAMMO SCREENING EXAM: MAMMO SCREENING CLINICAL HISTORY: SCREENING, Z12.31 TECHNIQUE: Bilateral full field digital CC and MLO mammographic images were obtained with 3D tomosynthesis and utilizing computer aided detection (CAD). COMPARISON: This is a baseline examination. There are no priors for comparison. FINDINGS: Masses/Architectural Distortion: There are no areas of architectural distortion present. There is a 5 mm nodular area 5.4 cm from the nipple laterally on the left CC view. There is a 7 mm lobulated nodule posterior to the nipple by 4.1 cm on the left MLO view. Microcalcifications: No suspicious pleomorphic-type are seen. Skin Thickening/Nipple Retraction: None. IMPRESSION: 1. Two left breast nodules. 2. These area should be further evaluated with spot compression views. Left breast ultrasound should be obtained at that time. BI-RADS Category 0 - Incomplete: Need additional imaging evaluation Breast Density - Category C - The breast are heterogeneously dense, which may obscure small masses. Breast density Category C or D implies that the patient has dense breast tissue. Dense breast tissue can make it harder to find cancer on a mammogram. Dense breast tissue is also associated with an increased risk of breast cancer. This information about the result of the mammogram report was provided to the patient to raise their awareness. Use this report when you speak with the patient about their risks for breast cancer, which includes their family history. At that time, you may recommend additional screening tests (Ultrasound or MRI) as these tests may add significant information. A negative radiographic report should not delay biopsy if a dominant or clinically suspicious mass is present. Up to ten percent of cancers are not identified on mammography. A negative report may reinforce clinical impression. Adenosis and dense breasts may obscure an underlying neoplasm. False positive reports average 6 to 10%. Patient will receive a letter notifying them of these results.
== END ==
PROVIDERS: PCP Family Medicine; Visit Provider Family Medicine
DX: Z12.31 Encounter for screening mammogram for malignant neoplasm of breast (principal)
CPT/HCPCS: 77063; 77067

== ENCOUNTER → 2025-02-25 00:43 | Outpatient (CLI) | payer MEDICAID, SELFPAY ==
--- NOTE | 2025-02-25 | DI.US_ITS ---
Exam(s) MG MAMMO SCREEN CALL BACK UNI US BREAST LT COMPLETE EXAM: MG MAMMO SCREEN CALL BACK UNI AND COMPLETE LEFT BREAST ULTRASOUND CLINICAL HISTORY: R92.8 ABN mammo, Two left breast nodules-5mm nodular area 5.4cm from nipple. TECHNIQUE: Unilateral spot mammographic images obtained with 3D tomosynthesisand utilizing computer aided detection (CAD). . Complete LEFT breast Ultrasound was also performed, including all 4 quadrants, the retroareolar region, and the ipsilateral axilla. COMPARISON: Prior mammograms were reviewed. This additional imaging was performed due to findings described on the recent screening mammogram of 02/17/2025. FINDINGS: DIAGNOSTIC MAMMOGRAM: Additional mammographic views performed todaydoes not dissipate the previously described small nodule but reveals a notch implying that is probably benign intramammary lymph node. COMPLETE LEFT BREAST ULTRASOUND: Ultrasound performed today reveals no evidence of solid or significant cystic lesions in all 4 quadrants.. Scanning of the ipsilateral axilla reveals no significant adenopathy. IMPRESSION: 1. As above. The small nodule in the left breast is most probably benign intramammary lymph node. Appropriate follow-up as discussed by myself with the patient today is repeat left breast mammogram in 6 months to ensure stability.. The patient was informed of these findings and recommendations by myself prior to leaving the department today. BI-RADS Category 3 - 6 month - Probably Benign Finding: Recommend follow-up mammography in 6 months Breast Density - Category C - The breast are heterogeneously dense, which may obscure small masses. Breast density Category C or D implies that the patient has dense breast tissue. Dense breast tissue can make it harder to find cancer on a mammogram. Dense breast tissue is also associated with an increased risk of breast cancer. This information about the result of the mammogram report was provided to the patient to raise their awareness. Use this report when you speak with the patient about their risks for breast cancer, which includes their family history. At that time, you may recommend additional screening tests (Ultrasound or MRI) as these tests may add significant information. A negative radiographic report should not delay biopsy if a dominant or clinically suspicious mass is present. Up to ten percent of cancers are not identified on mammography. A negative report may reinforce clinical impression. Adenosis and dense breasts may obscure an underlying neoplasm. False positive reports average 6 to 10%. Patient will receive a letter notifying them of these results.
== END ==
LOC: DI 00:43
PROVIDERS: PCP Family Medicine; Visit Provider Family Medicine
DX: Z12.31 Encounter for screening mammogram for malignant neoplasm of breast (principal); R92.8 Other abnormal and inconclusive findings on diagnostic imaging of breast
CPT/HCPCS: 76642; 77063; 77067